=== PATIENT | female | born 1935 | race African-American/Black ===

== ENCOUNTER → 2016-11-03 | Outpatient (CLI) | payer MEDICARE, OTHER ==
[2016-11-03 13:37] LABS: Basophils # (auto) 0 uL; Basophils % (auto) 0.5 % (0.0-2.0); DEFINITIVE VIEW TRANSMISSION; Eosinophils # (auto) 0.1 uL; Eosinophils % (auto) 1.7 % (0.0-7.0); Hematocrit 44.1 % (36.0-46.0); Hemoglobin 13.8 g/dL (12.2-16.2); Lymphocytes # (auto) 1.4 uL; Lymphocytes % (auto) 23.7 % (10.0-50.0); Mean Corpuscular Hemoglobin 26.2 pg (28.0-32.0); Mean Corpuscular Hgb Conc. 31.3 g/dL (32.0-36.0); Mean Corpuscular Volume 83.7 fL (80.0-100.0); Mean Platelet Volume 9.1 fL (7.4-10.4); Monocytes # (auto) 0.3 uL; Monocytes % (auto) 4.7 % (0.0-12.0); Neutrophils % (auto) 69.4 % (37.0-80.0); Platelet Count (auto) 375 10^3/uL (140-450); Red Cell Distribution Width 15.1 % (11.6-16.0); White Blood Cell 5.8 10^3/uL (4.4-10.8)
[2016-11-03 15:53] LABS: Albumin 4.2 g/dL (3.4-5.0); Alkaline Phosphatase 122 U/L (45-117); Anion Gap 10 (5-15); Aspartate Aminotransferase 20 U/L (15-37); BUN/Creatinine Ratio 16.8; Bilirubin, Direct < 0.1 mg/dL (0-0.2); Bilirubin, Total 0.4 mg/dL (0.2-1.0); Blood Urea Nitrogen 19 mg/dL (7-18); Calcium 10.3 mg/dL (8.5-10.1); Carbon Dioxide 24 mmol/L (21-32); Chloride 103 mmol/L (98-107); Cholesterol 283 mg/dL (<200); GFR African American 59 mL/min; GFR Non-African American 49 mL/min; Glucose 176 mg/dL (74-106); HDL Cholesterol 50 mg/dL (40-59); LDL Cholesterol 199 mg/dL (<100); Potassium 3.9 mmol/L (3.5-5.1); Sodium 137 mmol/L (136-145); Total Protein 7.9 g/dL (6.4-8.2); Triglycerides 268 mg/dL (<150)
== END | disposition home or self-care (01) ==
LOC: LAB 08:54
PROVIDERS: ATTEND Internal Medicine Cardiovascular Disease
DX: E11.9 Type 2 diabetes mellitus without complications (principal); I10 Essential (primary) hypertension; E78.00 Pure hypercholesterolemia, unspecified; E55.9 Vitamin D deficiency, unspecified; K74.1 Hepatic sclerosis; E03.9 Hypothyroidism, unspecified
CPT/HCPCS: 36415; 80048; 80061; 80076; 82306; 83036; 84443; 85025

== ENCOUNTER → 2016-11-06 | Outpatient (CLI) | payer MEDICARE, OTHER | END | disposition home or self-care (01) | LOC: Rad HDHVI 11:48 | PROVIDERS: ATTEND Internal Medicine Cardiovascular Disease | DX: I51.7 Cardiomegaly (principal); J98.11 Atelectasis; I70.0 Atherosclerosis of aorta | CPT/HCPCS: 71020 ==

== ENCOUNTER 2017-02-07 19:41 | Emergency (ER) | payer OTHER ==
[~2017-02-07] VITALS: Ht 170.2 cm; Wt 81.6 kg
[2017-02-07] MEDS ORDERED: cloNIDine HCL 0.1 MG TAB PO ONE (20:15)
[2017-02-07] MEDS: ASPirin 81 mg TAB PO ONE ×2 (20:27→20:40)
[2017-02-07 20:34] LABS: Basophils # (auto) 0 uL; Basophils % (auto) 0.3 % (0.0-2.0); DEFINITIVE VIEW TRANSMISSION; Eosinophils # (auto) 0.1 uL; Hematocrit 39.7 % (36.0-46.0); Hemoglobin 13.2 g/dL (12.2-16.2); Lymphocytes # (auto) 1.4 uL; Lymphocytes % (auto) 18.7 % (10.0-50.0); Mean Corpuscular Hemoglobin 26.8 pg (28.0-32.0); Mean Corpuscular Hgb Conc. 33.1 g/dL (32.0-36.0); Mean Platelet Volume 7.6 fL (7.4-10.4); Monocytes # (auto) 0.5 uL; Monocytes % (auto) 7.5 % (0.0-12.0); Neutrophils # (auto) 5.2 uL; Neutrophils % (auto) 72.5 % (37.0-80.0); Platelet Count (auto) 377 10^3/uL (140-450); Red Cell Distribution Width 14.7 % (11.6-16.0); White Blood Cell 7.2 10^3/uL (4.4-10.8)
[2017-02-07 20:59] LABS: Albumin 3.7 g/dL (3.4-5.0); Alkaline Phosphatase 111 U/L (45-117); Anion Gap 10 (5-15); Aspartate Aminotransferase 18 U/L (15-37); BUN/Creatinine Ratio 22.8; Bilirubin, Total 0.1 mg/dL (0.2-1.0); Blood Urea Nitrogen 23 mg/dL (7-18); Calcium 10.7 mg/dL (8.5-10.1); Carbon Dioxide 23 mmol/L (21-32); Chloride 106 mmol/L (98-107); GFR African American 67 mL/min; GFR Non-African American 56 mL/min; Glucose 197 mg/dL (74-106); Magnesium 2.5 mg/dL (1.6-2.6); Potassium 3.5 mmol/L (3.5-5.1); Sodium 139 mmol/L (136-145); Total Protein 7.5 g/dL (6.4-8.2)
[2017-02-07 21:50] VITALS: BP 142/72
== END 2017-02-07 22:10 | disposition home or self-care (01) ==
LOC: ER 19:46
DX: I10 Essential (primary) hypertension (principal); M19.90 Unspecified osteoarthritis, unspecified site; I25.2 Old myocardial infarction; Z88.2 Allergy status to sulfonamides; Z88.4 Allergy status to anesthetic agent
CPT/HCPCS: 36415; 71010; 80053; 83735; 84484; 85025; 93005; 94761

== ENCOUNTER → 2017-05-28 | Outpatient (CLI) | payer OTHER ==
[~2017-05-28] VITALS: Ht 167.6 cm; Wt 84.8 kg
[2017-05-28 12:19] LABS: Basophils # (auto) 0 uL; Basophils % (auto) 0.6 % (0.0-2.0); CONDITION Y; Eosinophils # (auto) 0.1 uL; Eosinophils % (auto) 1.3 % (0.0-7.0); Hematocrit 42.4 % (36.0-46.0); Hemoglobin 13.9 g/dL (12.2-16.2); Lymphocytes # (auto) 1.3 uL; Lymphocytes % (auto) 19.7 % (10.0-50.0); Mean Corpuscular Hemoglobin 27.1 pg (28.0-32.0); Mean Corpuscular Hgb Conc. 32.7 g/dL (32.0-36.0); Mean Corpuscular Volume 82.9 fL (80.0-100.0); Monocytes # (auto) 0.4 uL; Monocytes % (auto) 5.9 % (0.0-12.0); Neutrophils # (auto) 4.9 uL; Neutrophils % (auto) 72.5 % (37.0-80.0); Platelet Count (auto) 357 10^3/uL (140-450); Red Cell Distribution Width 16.7 % (11.6-16.0); White Blood Cell 6.8 10^3/uL (4.4-10.8)
[2017-05-28 12:26] LABS: BUN/Creatinine Ratio 14.3; Bilirubin, Total 0.4 mg/dL (0.2-1.0); Calcium 10.4 mg/dL (8.5-10.1); Total Protein 7.7 g/dL (6.4-8.2)
== END | disposition home or self-care (01) ==
LOC: Rad HDHVI 08:01
PROVIDERS: ATTEND Internal Medicine Cardiovascular Disease
DX: I10 Essential (primary) hypertension (principal)
CPT/HCPCS: 36415; 78452; 80053; 82306; 85025; 93017; 96374; A9500

== ENCOUNTER → 2017-06-14 | Outpatient (CLI) | payer BC | END | disposition home or self-care (01) | LOC: Rad HDHVI 10:46 | PROVIDERS: ATTEND Internal Medicine Cardiovascular Disease | DX: R07.89 Other chest pain (principal); I10 Essential (primary) hypertension; E11.9 Type 2 diabetes mellitus without complications | CPT/HCPCS: 93306 ==

== ENCOUNTER → 2018-03-28 | Outpatient (CLI) | payer BC | END | disposition home or self-care (01) | LOC: Rad HDHVI 10:46 | PROVIDERS: ATTEND Internal Medicine | DX: I25.10 Atherosclerotic heart disease of native coronary artery without angina pectoris (principal); I51.7 Cardiomegaly; I10 Essential (primary) hypertension; E11.9 Type 2 diabetes mellitus without complications; E03.9 Hypothyroidism, unspecified; E78.00 Pure hypercholesterolemia, unspecified | CPT/HCPCS: 71046 ==

== ENCOUNTER 2018-05-18 16:31 | Inpatient (IN) | payer BC ==
[~2018-05-18] VITALS: Ht 172.7 cm; Wt 92.8 kg
[2018-05-18 18:34] LABS: Basophils # (auto) 0 uL; Basophils % (auto) 0.7 % (0.0-2.0); Eosinophils # (auto) 0.1 uL; Eosinophils % (auto) 1.3 % (0.0-7.0); Hematocrit 41.2 % (36.0-46.0); Lymphocytes # (auto) 1.7 uL; Lymphocytes % (auto) 25.4 % (10.0-50.0); Mean Corpuscular Hemoglobin 28.8 pg (28.0-32.0); Mean Corpuscular Hgb Conc. 33.9 g/dL (32.0-36.0); Monocytes # (auto) 0.4 uL; Monocytes % (auto) 6.1 % (0.0-12.0); Neutrophils # (auto) 4.6 uL; Neutrophils % (auto) 66.5 % (37.0-80.0); Nucleated Red Blood Cells % 0.1 %; Platelet Count (auto) 342 10^3/uL (140-450); Red Blood Cells 4.85 10^6/uL (4.0-5.20); Red Cell Distribution Width 14.9 % (11.8-14.3); White Blood Cell 6.9 10^3/uL (4.4-10.8)
[2018-05-18 18:47] LABS: Alanine Aminotransferase 27 U/L (13-56); Albumin 3.9 g/dL (3.4-5.0); Anion Gap 12 (5-15); Aspartate Aminotransferase 14 U/L (15-37); BUN/Creatinine Ratio 13.6; Blood Urea Nitrogen 23 mg/dL (7-18); Calcium 10.1 mg/dL (8.5-10.1); Carbon Dioxide 21 mmol/L (21-32); Chloride 98 mmol/L (98-107); GFR African American 37 mL/min; GFR Non-African American 31 mL/min; Glucose 227 mg/dL (74-106); Magnesium 2.6 mg/dL (1.6-2.6); Potassium 3.6 mmol/L (3.5-5.1); Sodium 131 mmol/L (136-145)
[2018-05-18 18:52] LABS: Alkaline Phosphatase 102 U/L (45-117); Bilirubin, Total 0.2 mg/dL (0.2-1.0); Total Protein 7.8 g/dL (6.4-8.2)
[2018-05-19] MEDS ORDERED: ONDANSETRON ODT 4 MG TAB PO ONE (01:45)
[2018-05-19] MEDS ORDERED: MORPHINE SULF INJ 2 MG/ML SYRINGE 1ML IV ONE (01:45)
[2018-05-19] MEDS ORDERED: ACETAMINOPHEN 500 MG TAB PO ONE (02:00)
[2018-05-19 02:37] LABS: Amylase 63 U/L (25-115); Lipase 333 U/L (73-393)
[2018-05-19] MEDS ORDERED: HYDROcodone-ACET 5/325MG TAB PO ONE (05:00)
[2018-05-19] MEDS ORDERED: FUROSEMIDE 20 MG/2 ML VIAL IV ONE (05:00)
[2018-05-19] MEDS ORDERED: MORPHINE SULF INJ 2 MG/ML SYRINGE 1ML IV PRN (05:15)
[2018-05-19] MEDS ORDERED: TEMAZEPAM 15 MG CAP PO PRN (05:15)
[2018-05-19] MEDS ORDERED: DEXTROSE (50%) 50ML SYRG IV PRN ×2 (05:15→12:45)
[2018-05-19] MEDS ORDERED: NITROGLYCERIN 0.4 MG SL TAB SL PRN (05:15)
[2018-05-19] MEDS ORDERED: ONDANSETRON HCL 4 MG/2 ML VIAL IV PRN (05:15)
[2018-05-19] MEDS: ACCU-CHEK COMFORT CURVE STRIP VI SCH ×4 (06:00→21:59)
[2018-05-19] MEDS: InsuLIN REG 1unit/0.01ml Soln (100units/ml) SC SCH ×4 (06:45→21:59)
[2018-05-19] MEDS: amLODIPine BESYLATE 5 MG TAB PO SCH (10:16)
[2018-05-19] MEDS: hydrALAZINE HCL 25 MG TAB PO SCH ×2 (10:16→21:59)
[2018-05-19] MEDS: FUROSEMIDE 20 MG TAB PO SCH (10:16)
[2018-05-19] MEDS: PANTOPRAZOLE 40 MG TAB PO SCH (10:17)
[2018-05-19] MEDS ORDERED: AMLO5TAB2 PO (14:20)
[2018-05-19] MEDS ORDERED: LORA-654 PO (14:20)
[2018-05-19] MEDS ORDERED: IBUP800T24 PO (14:20)
[2018-05-19] MEDS ORDERED: OME20GT PO (14:20)
[2018-05-19] MEDS ORDERED: HYDR-4296 PO (14:21)
[2018-05-19 15:05] VITALS: BP 145/75
[2018-05-19] MEDS ORDERED: BISACODYL 5 MG EC TAB PO PRN (16:15)
[2018-05-19] MEDS ORDERED: BISACODYL 5 MG EC TAB PO ONE (16:15)
[2018-05-19] MEDS: ACETAMINOPHEN 325 MG TAB PO PRN (17:03)
[2018-05-19 17:27] VITALS: BP 148/78
[2018-05-19 21:51] VITALS: BP 136/62
[2018-05-20] VITALS (7 sets, daily range): BP systolic 136–157; BP diastolic 67–87
[2018-05-20 05:30] LABS: Basophils # (auto) 0.1 uL; Basophils % (auto) 0.9 % (0.0-2.0); Eosinophils # (auto) 0.2 uL; Eosinophils % (auto) 3.3 % (0.0-7.0); Hematocrit 39.9 % (36.0-46.0); Hemoglobin 13.5 g/dL (12.2-16.2); Lymphocytes # (auto) 1.3 uL; Lymphocytes % (auto) 21.6 % (10.0-50.0); Mean Corpuscular Hemoglobin 28.4 pg (28.0-32.0); Mean Corpuscular Hgb Conc. 33.9 g/dL (32.0-36.0); Mean Corpuscular Volume 83.9 fL (80.0-100.0); Monocytes # (auto) 0.5 uL; Monocytes % (auto) 8.5 % (0.0-12.0); Neutrophils % (auto) 65.7 % (37.0-80.0); Platelet Count (auto) 307 10^3/uL (140-450); Red Blood Cells 4.75 10^6/uL (4.0-5.20); Red Cell Distribution Width 14.9 % (11.8-14.3)
[2018-05-20] MEDS: ACETAMINOPHEN 325 MG TAB PO PRN (05:53)
[2018-05-20] MEDS: InsuLIN REG 1unit/0.01ml Soln (100units/ml) SC SCH ×4 (05:53→22:11)
[2018-05-20] MEDS: ACCU-CHEK COMFORT CURVE STRIP VI SCH ×4 (05:53→22:11)
[2018-05-20 05:54] LABS: Albumin 3.5 g/dL (3.4-5.0); BUN/Creatinine Ratio 17.3; Bilirubin, Total 0.3 mg/dL (0.2-1.0); Calcium 9.6 mg/dL (8.5-10.1); Potassium 3.9 mmol/L (3.5-5.1); Total Protein 6.5 g/dL (6.4-8.2)
[2018-05-20] MEDS ORDERED: LIDOCAINE 2%HCL (LOCAL ANESTH.) INJ 10ml MDV ONE (07:31)
[2018-05-20] MEDS ORDERED: IODIXANOL 320MG/ML 100ML BTL IV ONE (07:32)
[2018-05-20] MEDS ORDERED: HEPARIN IN NS 1000Units/500mL 0 ML ONE (07:32)
[2018-05-20] MEDS: PANTOPRAZOLE 40 MG TAB PO SCH (10:18)
[2018-05-20] MEDS: amLODIPine BESYLATE 5 MG TAB PO SCH (10:19)
[2018-05-20] MEDS: FUROSEMIDE 20 MG TAB PO SCH (10:19)
[2018-05-20] MEDS: hydrALAZINE HCL 25 MG TAB PO SCH ×2 (10:19→22:10)
[2018-05-21 03:53] LABS: Basophils # (auto) 0 uL; Basophils % (auto) 0.7 % (0.0-2.0); Eosinophils # (auto) 0.2 uL; Eosinophils % (auto) 2.8 % (0.0-7.0); Hematocrit 42.7 % (36.0-46.0); Lymphocytes # (auto) 1.5 uL; Lymphocytes % (auto) 26.1 % (10.0-50.0); Mean Corpuscular Hemoglobin 28.1 pg (28.0-32.0); Mean Corpuscular Hgb Conc. 32.9 g/dL (32.0-36.0); Mean Corpuscular Volume 85.4 fL (80.0-100.0); Monocytes # (auto) 0.5 uL; Neutrophils # (auto) 3.5 uL; Neutrophils % (auto) 61.4 % (37.0-80.0); Nucleated Red Blood Cells % 0.2 %; Platelet Count (auto) 311 10^3/uL (140-450); Red Cell Distribution Width 15.2 % (11.8-14.3); White Blood Cell 5.8 10^3/uL (4.4-10.8)
[2018-05-21 04:10] LABS: BUN/Creatinine Ratio 13.2; Calcium 9.6 mg/dL (8.5-10.1); Potassium 3.6 mmol/L (3.5-5.1)
[2018-05-21] MEDS: InsuLIN REG 1unit/0.01ml Soln (100units/ml) SC SCH ×2 (06:41→12:32)
[2018-05-21] MEDS: ACCU-CHEK COMFORT CURVE STRIP VI SCH ×2 (06:41→11:30)
[2018-05-21 08:00] VITALS: BP 148/76
[2018-05-21 09:00] VITALS: BP 149/71
[2018-05-21] MEDS: FUROSEMIDE 20 MG TAB PO SCH (10:51)
[2018-05-21] MEDS: amLODIPine BESYLATE 5 MG TAB PO SCH (10:51)
[2018-05-21] MEDS: hydrALAZINE HCL 25 MG TAB PO SCH (10:52)
[2018-05-21] MEDS: PANTOPRAZOLE 40 MG TAB PO SCH (10:52)
[2018-05-21 13:00] VITALS: BP 143/81
== END 2018-05-21 14:45 | disposition home or self-care (01) | DRG 291 ==
LOC: ER 16:34 → OVERFLOW 16:35 → TELE-CENTR 05-19 12:59
PROVIDERS: ADMIT Nurse Practitioner; ATTEND Internal Medicine Cardiovascular Disease
DX: I13.0 Hypertensive heart and chronic kidney disease with heart failure and stage 1 through stage 4 chronic kidney disease, or unspecified chronic kidney disease (principal); I50.33 Acute on chronic diastolic (congestive) heart failure; N17.9 Acute kidney failure, unspecified; E87.1 Hypo-osmolality and hyponatremia; J98.11 Atelectasis; N18.3 Chronic kidney disease, stage 3 (moderate); N28.1 Cyst of kidney, acquired; D25.9 Leiomyoma of uterus, unspecified; E11.22 Type 2 diabetes mellitus with diabetic chronic kidney disease; J44.9 Chronic obstructive pulmonary disease, unspecified; E66.9 Obesity, unspecified; I70.0 Atherosclerosis of aorta; E11.51 Type 2 diabetes mellitus with diabetic peripheral angiopathy without gangrene; I25.119 Atherosclerotic heart disease of native coronary artery with unspecified angina pectoris; Z68.31 Body mass index [BMI] 31.0-31.9, adult; Z90.49 Acquired absence of other specified parts of digestive tract; Z85.9 Personal history of malignant neoplasm, unspecified; Z88.6 Allergy status to analgesic agent; Z88.8 Allergy status to other drugs, medicaments and biological substances; Z88.2 Allergy status to sulfonamides
CPT/HCPCS: 36415; 70450; 71046; 74176; 80048; 80053; 82150; 82962; 83036; 83690; 83735; 84484; 85025; 93005; 93306; 96372; 96374; A6257; J1815; J2001; Q0162; Q9967

== ENCOUNTER → 2018-06-17 | Outpatient (CLI) | payer BC ==
[~2018-06-17] MED LIST: AMLO10TA12 PO; AMLO5TAB13 PO; ASPI81TA27 PO; HYDR-4296 PO; IBUP800T24 PO; LORA-654 PO; OME20GT PO; OMEP20TA PO
[2018-06-17 09:50] VITALS: BP 154/83
[2018-06-17 10:15] VITALS: BP 158/84
[2018-06-17 12:41] LABS: Basophils # (auto) 0 uL; Eosinophils # (auto) 0.1 uL; Eosinophils % (auto) 2.2 % (0.0-7.0); Hematocrit 44.7 % (36.0-46.0); Lymphocytes # (auto) 1.1 uL; Mean Corpuscular Hemoglobin 28.6 pg (28.0-32.0); Mean Corpuscular Hgb Conc. 33.5 g/dL (32.0-36.0); Mean Corpuscular Volume 85.4 fL (80.0-100.0); Monocytes # (auto) 0.3 uL; Monocytes % (auto) 5.7 % (0.0-12.0); Neutrophils % (auto) 66.1 % (37.0-80.0); Nucleated Red Blood Cells % 0.2 %; Platelet Count (auto) 305 10^3/uL (140-450); Red Blood Cells 5.23 10^6/uL (4.0-5.20); Red Cell Distribution Width 14.4 % (11.8-14.3); White Blood Cell 4.6 10^3/uL (4.4-10.8)
[2018-06-17 13:01] LABS: INR 0.96 (0.9-1.15); Partial Thromboplastin Time 27.9 sec (23.78-33.04); Prothrombin Time 10.3 sec (9.27-12.13)
[2018-06-17 13:03] LABS: BUN/Creatinine Ratio 13.3; Calcium 10.5 mg/dL (8.5-10.1); Potassium 3.5 mmol/L (3.5-5.1)
== END | disposition home or self-care (01) ==
LOC: Rad HDHVI 09:39
PROVIDERS: ATTEND Internal Medicine Cardiovascular Disease
DX: Z01.818 Encounter for other preprocedural examination (principal); I70.0 Atherosclerosis of aorta; I10 Essential (primary) hypertension; D64.9 Anemia, unspecified; R79.1 Abnormal coagulation profile; R94.31 Abnormal electrocardiogram [ECG] [EKG]; Z88.2 Allergy status to sulfonamides; Z88.5 Allergy status to narcotic agent
CPT/HCPCS: 36415; 71046; 80048; 85025; 85610; 85730; 93005; G0463

== ENCOUNTER 2018-06-23 09:15 | Day surgery (SDC) | payer BC ==
[~2018-06-23] VITALS: Ht 172.7 cm; Wt 86.2 kg
[~2018-06-23 09:15] MED LIST changes: -AMLO5TAB13 PO; -OME20GT PO
[2018-06-23] MEDS ORDERED: LIDOCAINE 2% (LOCAL ANESTH.) PF 5ml SDV ONE (11:39)
[2018-06-23] MEDS ORDERED: IODIXANOL 320MG/ML 100ML BTL IV ONE (11:51)
[2018-06-23] MEDS ORDERED: fentaNYL CITRATE 100 MCG/2 ML VL ONE (12:14)
[2018-06-23] MEDS ORDERED: methylPREDNISolone SOD SUCC 125 MG/2 ML VL ONE (12:14)
[2018-06-23] MEDS ORDERED: diphenhdrAMINE HCL 50 MG/1 ML VL ONE (12:14)
[2018-06-23] MEDS ORDERED: MIDAZOLAM HCL 1MG/1ML-2 ML VIAL ONE ×2 (12:15→13:01)
[2018-06-23] MEDS ORDERED: NITROGLYCERIN 0.4MG/DOSE SPRAY 4.9GM ONE (12:23)
[2018-06-23] MEDS ORDERED: LIDOCAINE 2%HCL (LOCAL ANESTH.) INJ 20ML MDV ONE (13:01)
[2018-06-23] MEDS ORDERED: ANGIOMAX 250 MG VIAL IV ONE (13:02)
[2018-06-23] MEDS ORDERED: SODIUM CHL 0.9% 0 ML ONE (13:02)
== END 2018-06-23 15:40 | disposition home or self-care (01) ==
LOC: CATH 09:15
PROVIDERS: ATTEND Internal Medicine Cardiovascular Disease
DX: I25.10 Atherosclerotic heart disease of native coronary artery without angina pectoris (principal); I27.20 Pulmonary hypertension, unspecified; I11.0 Hypertensive heart disease with heart failure; E11.9 Type 2 diabetes mellitus without complications; Z79.82 Long term (current) use of aspirin; Z79.899 Other long term (current) drug therapy; Z91.041 Radiographic dye allergy status; Z88.2 Allergy status to sulfonamides; Z88.1 Allergy status to other antibiotic agents; Z88.6 Allergy status to analgesic agent; Z88.8 Allergy status to other drugs, medicaments and biological substances; Z80.0 Family history of malignant neoplasm of digestive organs; Z82.49 Family history of ischemic heart disease and other diseases of the circulatory system
CPT/HCPCS: 93460; A6257; C1751; C1760; C1894; J1200; J1644; J2001; J2250; J2930; J3010; J7030; Q9967; 99152

== ENCOUNTER → 2018-10-24 | Outpatient (CLI) | payer BC ==
[~2018-10-24] VITALS: Ht 30.5 cm; Wt 0.5 kg
[~2018-10-24] MED LIST changes: +IOHEXOL 350 MG/ML 100ML IJ ONE; +diphenhdrAMINE HCL 50 MG/1 ML VL IV ONE; +diphenhdrAMINE HCL 50 MG/1 ML VL ONE; +methylPREDNISolone SOD SUCC 125 MG/2 ML VL IV ONE; +methylPREDNISolone SOD SUCC 125 MG/2 ML VL ONE
[2018-10-24 09:45] VITALS: BP 146/80
--- NOTE | 2018-10-24 09:45 | NUR ---
[facility] PT TO [facility] FOR IV INSERT FOR CT CHEST C/O CONTINUED EPIGASTRIC PAIN.
--- NOTE | 2018-10-24 09:45 | NUR ---
[facility]F PT TO [facility] PT IV INSERT CT CHEST FOR C/O CONTINUED EPIGASTRIC PAIN EVEN AFTER ORAL TX.
--- NOTE | 2018-10-24 09:55 | NUR ---
CHF IV insertion IV access obtained, via clean sterile technique by inserting 22 gauge catheter at after attempt(s). IV secured properly. No trauma to site. Patient tolerated procedure well.EZ CHEMO 1.40,WILL RUN IV HYDRATION 250 ML BOLUS NS . Addendum: 10/24/18 at 1504 by Elly Andrew RN [place] PREMEDICATION WILL ALSO BE NEEDED PT HAS IODINE ALLERGY.
--- NOTE | 2018-10-24 10:04 | NUR ---
CHF IV insertion IV access obtained, via clean sterile technique by inserting 22 gauge catheter at after attempt(s). IV secured properly. No trauma to site. Patient tolerated procedure well.WGHT 186 LB. Addendum: 10/24/18 at [facility] by Elly Andrew RN [place] WILL PREMEDICATION WITH 125MG IV SOLUMEDEROL IVP AND THAN BENADRYL 25MG IVP,DUE TO IODINE ALLERGY.
[2018-10-24] MEDS: SODIUM CHLORIDE 0.9% 250 ML IV SCH ×2 (10:12→10:32)
--- NOTE | 2018-10-24 10:12 | NUR ---
CHF 1008 IVP SOLU MEDROL 125MG ADMINISTERED. 25MG BENADRYL IVP AT 1010 1012 NS 250ML BOLUS STARTED.
--- NOTE | 2018-10-24 10:12 | NUR ---
CHF IVP SOLU MEDROL AND BENADRYL 25MG IVP ADMINISTERED AND IV NS 250MG BOLUS STARTED IV NS BOLUS 250ML
[2018-10-24 11:25] VITALS: BP 141/78
--- NOTE | 2018-10-24 11:25 | NUR ---
CHF IV NS COMPLETE. IV removal IV DC'd with sterile technique, catheter fully intact. Pressure dressing applied to site. Patient tolerated procedure well. Discharged with aftercare instructions per . F/U WITH DR. NARAYANAN SCHEDULED. NOTE:
== END | disposition home or self-care (01) ==
LOC: Rad HDHVI 09:18
PROVIDERS: ATTEND Internal Medicine Cardiovascular Disease
DX: R07.9 Chest pain, unspecified (principal); R10.13 Epigastric pain; N28.9 Disorder of kidney and ureter, unspecified; J98.11 Atelectasis; I70.0 Atherosclerosis of aorta; I25.10 Atherosclerotic heart disease of native coronary artery without angina pectoris; I13.0 Hypertensive heart and chronic kidney disease with heart failure and stage 1 through stage 4 chronic kidney disease, or unspecified chronic kidney disease; E11.22 Type 2 diabetes mellitus with diabetic chronic kidney disease; E11.51 Type 2 diabetes mellitus with diabetic peripheral angiopathy without gangrene; N18.3 Chronic kidney disease, stage 3 (moderate); I50.32 Chronic diastolic (congestive) heart failure; J44.9 Chronic obstructive pulmonary disease, unspecified; E66.9 Obesity, unspecified; Z85.9 Personal history of malignant neoplasm, unspecified; Z90.49 Acquired absence of other specified parts of digestive tract; Z79.899 Other long term (current) drug therapy; Z79.82 Long term (current) use of aspirin
CPT/HCPCS: 71260; 82565; 96361; 96374; 96375; G0463; J1200; J2930; J7050; Q9967

== ENCOUNTER → 2019-02-22 | Outpatient (CLI) | payer BC, OTHER ==
[~2019-02-22] MED LIST changes: -IOHEXOL 350 MG/ML 100ML IJ ONE; -diphenhdrAMINE HCL 50 MG/1 ML VL IV ONE; -diphenhdrAMINE HCL 50 MG/1 ML VL ONE; -methylPREDNISolone SOD SUCC 125 MG/2 ML VL IV ONE; -methylPREDNISolone SOD SUCC 125 MG/2 ML VL ONE
== END | disposition home or self-care (01) ==
LOC: Rad HDHVI 12:26
PROVIDERS: ATTEND Internal Medicine Cardiovascular Disease
DX: K56.609 Unspecified intestinal obstruction, unspecified as to partial versus complete obstruction (principal)
CPT/HCPCS: 74018

== ENCOUNTER → 2019-05-09 | Outpatient (CLI) | payer BC ==
[~2019-05-09] MED LIST changes: -AMLO10TA12 PO; +AMLO10TA13 PO; +ASPI-404 PO; -ASPI81TA27 PO; -LORA-654 PO; +LORA0.5T12 PO
== END | disposition home or self-care (01) ==
LOC: Rad HDHVI 13:31
PROVIDERS: ATTEND Internal Medicine Cardiovascular Disease
DX: I08.1 Rheumatic disorders of both mitral and tricuspid valves (principal); I11.0 Hypertensive heart disease with heart failure; I50.9 Heart failure, unspecified; I42.9 Cardiomyopathy, unspecified
CPT/HCPCS: 93306

== ENCOUNTER → 2019-09-15 | Outpatient (CLI) | payer BC, MEDICARE ==
[2019-09-15 12:27] LABS: Basophils # (auto) 0.1 uL; Basophils % (auto) 1.2 % (0.0-2.0); Eosinophils # (auto) 0.1 uL; Eosinophils % (auto) 1.3 % (0.0-7.0); Hematocrit 42.1 % (36.0-46.0); Hemoglobin 13.9 g/dL (12.2-16.2); Lymphocytes # (auto) 1.2 uL; Lymphocytes % (auto) 22.9 % (10.0-50.0); Mean Corpuscular Hemoglobin 29.4 pg (28.0-32.0); Mean Corpuscular Volume 89.1 fL (80.0-100.0); Monocytes # (auto) 0.3 uL; Monocytes % (auto) 5.9 % (0.0-12.0); Neutrophils # (auto) 3.7 uL; Neutrophils % (auto) 68.7 % (37.0-80.0); Nucleated Red Blood Cells % 0.2 %; Platelet Count (auto) 301 10^3/uL (140-450); Red Blood Cells 4.72 10^6/uL (4.0-5.20); White Blood Cell 5.4 10^3/uL (4.4-10.8)
[2019-09-15 12:36] LABS: Albumin 3.9 g/dL (3.4-5.0); Calcium 10.7 mg/dL (8.5-10.1); Potassium 3.5 mmol/L (3.5-5.1)
[2019-09-15 12:43] LABS: BUN/Creatinine Ratio 12.7; Bilirubin, Total 0.3 mg/dL (0.2-1.0); Total Protein 7.5 g/dL (6.4-8.2)
== END | disposition home or self-care (01) ==
LOC: LAB 08:35
PROVIDERS: ATTEND Internal Medicine Cardiovascular Disease
DX: Z00.00 Encounter for general adult medical examination without abnormal findings (principal); E03.9 Hypothyroidism, unspecified; K90.9 Intestinal malabsorption, unspecified; D51.9 Vitamin B12 deficiency anemia, unspecified; Z79.899 Other long term (current) drug therapy
CPT/HCPCS: 36415; 80053; 80061; 82306; 82607; 83036; 84439; 84443; 85025

== ENCOUNTER → 2019-11-21 | Outpatient (CLI) | payer MEDICARE ==
[~2019-11-21] MED LIST changes: +READI-CAT 2 (BARIUM SULF)(VANILLA SMOOTHIE) 450ML ONE
== END | disposition home or self-care (01) ==
LOC: Rad HDHVI 09:18
PROVIDERS: ATTEND Internal Medicine Cardiovascular Disease
DX: K57.30 Diverticulosis of large intestine without perforation or abscess without bleeding (principal); C18.9 Malignant neoplasm of colon, unspecified; I10 Essential (primary) hypertension; N85.8 Other specified noninflammatory disorders of uterus; K76.0 Fatty (change of) liver, not elsewhere classified; K42.9 Umbilical hernia without obstruction or gangrene; K59.00 Constipation, unspecified
CPT/HCPCS: 74176

== ENCOUNTER → 2020-12-16 | Outpatient (CLI) | payer MEDICARE ==
[~2020-12-16] MED LIST changes: +AMLO-496 PO; -AMLO10TA13 PO; -ASPI-404 PO; +ASPI-543 PO; -IBUP800T24 PO; +IBUP800T26 PO; -LORA0.5T12 PO; +LORA0.5T20 PO; -READI-CAT 2 (BARIUM SULF)(VANILLA SMOOTHIE) 450ML ONE
[2020-12-16 12:11] LABS: Basophils # (auto) 0 10 ^3/uL (0-0.2); Basophils % (auto) 0.7 % (0.0-2.0); Eosinophils # (auto) 0.1 10 ^3/uL (0-0.8); Eosinophils % (auto) 1.4 % (0.0-7.0); Hematocrit 44.7 % (36.0-46.0); Hemoglobin 14.9 g/dL (12.2-16.2); Lymphocytes # (auto) 1.4 10 ^3/uL (0.4-5.4); Lymphocytes % (auto) 21.7 % (10.0-50.0); Mean Corpuscular Hemoglobin 29.9 pg (28.0-32.0); Mean Corpuscular Hgb Conc. 33.3 g/dL (32.0-36.0); Mean Corpuscular Volume 89.6 fL (80.0-100.0); Monocytes # (auto) 0.4 10 ^3/uL (0-1.3); Monocytes % (auto) 6.4 % (0.0-12.0); Neutrophils # (auto) 4.5 10 ^3/uL (1.6-8.6); Neutrophils % (auto) 69.8 % (37.0-80.0); Platelet Count (auto) 294 10^3/uL (140-450); Red Blood Cells 4.98 10^6/uL (4.0-5.20); Red Cell Distribution Width 14.1 % (11.8-14.3); White Blood Cell 6.5 10^3/uL (4.4-10.8)
[2020-12-16 12:16] LABS: Albumin 4.1 g/dL (3.4-5.0); BUN/Creatinine Ratio 13.5; Calcium 10.6 mg/dL (8.5-10.1); Potassium 3.7 mmol/L (3.5-5.1)
[2020-12-16 12:20] LABS: Bilirubin, Total 0.4 mg/dL (0.2-1.0); Total Protein 7.7 g/dL (6.4-8.2)
[2020-12-16 12:34] LABS: Free T4 (Free Thyroxine) 1.15 ng/dL (0.89-1.76)
== END | disposition home or self-care (01) ==
LOC: LAB 10:18
PROVIDERS: ATTEND Internal Medicine Cardiovascular Disease
DX: D51.3 Other dietary vitamin B12 deficiency anemia (principal); I10 Essential (primary) hypertension; E11.9 Type 2 diabetes mellitus without complications; E55.9 Vitamin D deficiency, unspecified; D64.9 Anemia, unspecified; R00.2 Palpitations; R53.1 Weakness; R30.0 Dysuria
CPT/HCPCS: 36415; 80053; 80061; 82306; 82607; 83036; 84439; 84443; 85025

== ENCOUNTER → 2020-12-19 | Outpatient (CLI) | payer MEDICARE | END | disposition home or self-care (01) | LOC: Rad HDHVI 09:45 | PROVIDERS: ATTEND Internal Medicine Cardiovascular Disease | DX: I08.1 Rheumatic disorders of both mitral and tricuspid valves (principal); I11.9 Hypertensive heart disease without heart failure; E78.5 Hyperlipidemia, unspecified | CPT/HCPCS: 93306 ==

== ENCOUNTER 2021-02-05 12:27 | Inpatient (IN) | payer BC, OTHER ==
[~2021-02-05] VITALS: Ht 172.7 cm; Wt 87.0 kg
[2021-02-05 13:29] LABS: Basophils # (auto) 0.1 10 ^3/uL (0-0.2); Basophils % (auto) 0.9 % (0.0-2.0); Eosinophils # (auto) 0.1 10 ^3/uL (0-0.8); Eosinophils % (auto) 1.4 % (0.0-7.0); Hemoglobin 15.1 g/dL (12.2-16.2); Lymphocytes # (auto) 1.6 10 ^3/uL (0.4-5.4); Mean Corpuscular Hemoglobin 30.2 pg (28.0-32.0); Mean Corpuscular Hgb Conc. 34.2 g/dL (32.0-36.0); Mean Corpuscular Volume 88.3 fL (80.0-100.0); Monocytes # (auto) 0.5 10 ^3/uL (0-1.3); Monocytes % (auto) 6.7 % (0.0-12.0); Neutrophils # (auto) 5.5 10 ^3/uL (1.6-8.6); Nucleated Red Blood Cells % 0.1 %; Platelet Count (auto) 297 10^3/uL (140-450); Red Blood Cells 4.98 10^6/uL (4.0-5.20); Red Cell Distribution Width 14.1 % (11.8-14.3); White Blood Cell 7.8 10^3/uL (4.4-10.8)
[2021-02-05 13:47] LABS: Chloride 106 mmol/L (98-107); Potassium 3.4 mmol/L (3.5-5.1); Sodium 139 mmol/L (136-145)
[2021-02-05 13:56] LABS: Alanine Aminotransferase 24 U/L (13-56); Albumin 3.9 g/dL (3.4-5.0); Alkaline Phosphatase 105 U/L (45-117); Anion Gap 8 (5-15); Aspartate Aminotransferase 11 U/L (15-37); BUN/Creatinine Ratio 13.9; Bilirubin, Total 0.3 mg/dL (0.2-1.0); Blood Urea Nitrogen 15 mg/dL (7-18); Carbon Dioxide 25 mmol/L (21-32); GFR African American 62 mL/min; GFR Non-African American 51 mL/min; Glucose 125 mg/dL (74-106); Lipase 182 U/L (73-393); Total Protein 7.7 g/dL (6.4-8.2)
[2021-02-05] MEDS ORDERED: cloNIDine HCL 0.1 MG TAB PO ONE (14:00)
[2021-02-05 14:37] LABS: Urine Bacteria FEW /hpf (None Seen); Urine Blood Negative /uL (Negative); Urine Specific Gravity 1.003 (1.001-1.035); Urine WBC 1 /hpf (0 - 5)
[2021-02-05] MEDS ORDERED: NITROGLYCERIN 0.4 MG SL TAB SL PRN (15:45)
[2021-02-05] MEDS ORDERED: MORPHINE SULF INJ 2 MG/ML SYRINGE 1ML IV PRN (15:45)
[2021-02-05] MEDS: SODIUM CHLORIDE 0.9% 1,000 ML IV SCH (16:34)
[2021-02-05] MEDS: PIPERACILLIN-TAZOB 3.375GM 100 ML IV SCH ×2 (17:08→22:19)
[2021-02-05 22:00] VITALS: BP 143/66
[2021-02-05] MEDS ORDERED: OMEPRAZOLE 20MG/10ML ORAL SUSP PO SCH (22:00)
[2021-02-05] MEDS ORDERED: PIPERACILLIN-TAZO 4.5GM 100 ML IV SCH (22:00)
[2021-02-05] MEDS: PANTOPRAZOLE 40 MG TAB PO SCH (22:18)
[2021-02-05] MEDS: SACUBITRIL-VALSARTAN 24mg/26mg TAB PO SCH (22:18)
[2021-02-05] MEDS: hydrALAZINE HCL 25 MG TAB PO SCH (22:18)
[2021-02-05 23:02] VITALS: BP 143/66
[2021-02-05] MEDS ORDERED: DEXL60CA4 PO (23:35)
[2021-02-05] MEDS ORDERED: IBUP600T27 PO (23:35)
[2021-02-05] MEDS ORDERED: DOCU-94 PO (23:35)
[2021-02-06] MEDS: PIPERACILLIN-TAZOB 3.375GM 100 ML IV SCH ×4 (03:39→21:47)
[2021-02-06] MEDS: guaiFENesin-DM 100/10mg/5ml SYR PO PRN ×2 (03:39→22:34)
[2021-02-06 05:00] VITALS: BP 154/73
[2021-02-06] MEDS: SODIUM CHLORIDE 0.9% 1,000 ML IV SCH ×2 (05:08→18:25)
[2021-02-06 09:00] VITALS: BP 157/74
[2021-02-06] MEDS: hydrALAZINE HCL 25 MG TAB PO SCH ×2 (09:54→21:46)
[2021-02-06] MEDS: SACUBITRIL-VALSARTAN 24mg/26mg TAB PO SCH ×2 (09:55→21:46)
[2021-02-06] MEDS: PANTOPRAZOLE 40 MG TAB PO SCH ×2 (09:55→21:47)
[2021-02-06] MEDS: amLODIPine BESYLATE 5 MG TAB PO SCH (09:55)
[2021-02-06] MEDS: ASPirin-EC 81 mg tab PO SCH (09:56)
[2021-02-06] MEDS: HYDROcodone-ACET 10/325MG TAB PO PRN (10:15)
[2021-02-06] MEDS ORDERED: LACTULOSE 20Gm/30ML SOLN PO ONE (10:45)
[2021-02-06 12:36] VITALS: BP 165/79
[2021-02-06 17:01] VITALS: BP 170/89
[2021-02-06] MEDS: PANCREATIC ENZYMES 4200 UNIT CAP PO SCH (17:17)
[2021-02-06] MEDS ORDERED: PANCREATIC ENZYMES 4200 UNIT CAP PO SCH (18:00)
[2021-02-06] MEDS: LORazepam 0.5 MG TAB PO PRN (21:47)
[2021-02-06 22:24] VITALS: BP 167/79
[2021-02-07] MEDS: PIPERACILLIN-TAZOB 3.375GM 100 ML IV SCH ×4 (04:06→23:09)
[2021-02-07 04:44] VITALS: BP 165/86
[2021-02-07] MEDS: PANCREATIC ENZYMES 4200 UNIT CAP PO SCH ×3 (06:23→17:57)
[2021-02-07] MEDS: SODIUM CHLORIDE 0.9% 1,000 ML IV SCH ×2 (07:45→23:07)
[2021-02-07 08:48] VITALS: BP 122/69
[2021-02-07] MEDS: hydrALAZINE HCL 25 MG TAB PO SCH ×2 (09:52→23:08)
[2021-02-07] MEDS: SACUBITRIL-VALSARTAN 24mg/26mg TAB PO SCH ×2 (09:52→23:08)
[2021-02-07] MEDS: PANTOPRAZOLE 40 MG TAB PO SCH ×2 (09:52→23:08)
[2021-02-07] MEDS: ASPirin-EC 81 mg tab PO SCH (09:53)
[2021-02-07] MEDS: amLODIPine BESYLATE 5 MG TAB PO SCH (09:55)
[2021-02-07 12:42] VITALS: BP 158/76
[2021-02-07] MEDS ORDERED: GASTROGRAFIN 120 ML SOL ONE (14:53)
[2021-02-07 16:30] VITALS: BP 168/95
[2021-02-07] MEDS: LACTULOSE 20Gm/30ML SOLN PO PRN (17:58)
[2021-02-07] MEDS: ACETAMINOPHEN 325 MG TAB PO PRN (17:58)
[2021-02-07] MEDS ORDERED: cloNIDine HCL 0.1 MG TAB PO PRN (18:15)
[2021-02-07 22:00] VITALS: BP 155/80
[2021-02-08 05:00] VITALS: BP 158/81
[2021-02-08] MEDS: PIPERACILLIN-TAZOB 3.375GM 100 ML IV SCH ×2 (05:41→10:17)
[2021-02-08] MEDS: PANCREATIC ENZYMES 4200 UNIT CAP PO SCH ×3 (06:10→17:00)
[2021-02-08 09:00] VITALS: BP 159/92
[2021-02-08] MEDS: amLODIPine BESYLATE 5 MG TAB PO SCH (10:00)
[2021-02-08] MEDS: ASPirin-EC 81 mg tab PO SCH (10:14)
[2021-02-08] MEDS: PANTOPRAZOLE 40 MG TAB PO SCH ×2 (10:15→21:16)
[2021-02-08] MEDS: SACUBITRIL-VALSARTAN 24mg/26mg TAB PO SCH ×2 (10:15→21:17)
[2021-02-08] MEDS: hydrALAZINE HCL 25 MG TAB PO SCH ×2 (10:16→21:18)
[2021-02-08] MEDS: SODIUM CHLORIDE 0.9% 1,000 ML IV SCH ×2 (10:25→23:45)
[2021-02-08] MEDS ORDERED: MAGNESIUM CITRATE SOLUTION 300 ML BTL PO ONE (11:00)
[2021-02-08] MEDS ORDERED: hydrALAZINE HCL 25 MG TAB PO SCH (11:15)
[2021-02-08] MEDS ORDERED: hydrALAZINE HCL 25 MG TAB PO ONE (12:00)
[2021-02-08] MEDS: POTASSIUM CHL 20MEQ/100ML 100 ML IV SCH ×2 (12:03→14:03)
[2021-02-08 12:04] LABS: Basophils # (auto) 0.1 10 ^3/uL (0-0.2); Basophils % (auto) 1.2 % (0.0-2.0); Eosinophils # (auto) 0.2 10 ^3/uL (0-0.8); Eosinophils % (auto) 3.1 % (0.0-7.0); Hematocrit 43.3 % (36.0-46.0); Hemoglobin 14.8 g/dL (12.2-16.2); Lymphocytes # (auto) 1.2 10 ^3/uL (0.4-5.4); Lymphocytes % (auto) 17.8 % (10.0-50.0); Mean Corpuscular Hemoglobin 29.6 pg (28.0-32.0); Mean Corpuscular Hgb Conc. 34.1 g/dL (32.0-36.0); Mean Corpuscular Volume 86.7 fL (80.0-100.0); Monocytes # (auto) 0.4 10 ^3/uL (0-1.3); Monocytes % (auto) 6.6 % (0.0-12.0); Neutrophils # (auto) 4.6 10 ^3/uL (1.6-8.6); Neutrophils % (auto) 71.3 % (37.0-80.0); Nucleated Red Blood Cells % 0.1 %; Platelet Count (auto) 276 10^3/uL (140-450); Red Cell Distribution Width 13.6 % (11.8-14.3); White Blood Cell 6.5 10^3/uL (4.4-10.8)
[2021-02-08 12:10] LABS: BUN/Creatinine Ratio 11.5; Calcium 10.1 mg/dL (8.5-10.1); Potassium 3.6 mmol/L (3.5-5.1)
[2021-02-08 13:00] VITALS: BP 168/83
[2021-02-08 17:00] VITALS: BP 158/85
[2021-02-08] MEDS: guaiFENesin-DM 100/10mg/5ml SYR PO PRN (21:15)
[2021-02-08 22:08] VITALS: BP 142/75
[2021-02-09 05:00] VITALS: BP 148/75
[2021-02-09] MEDS: LACTULOSE 20Gm/30ML SOLN PO PRN (06:14)
[2021-02-09] MEDS: PANCREATIC ENZYMES 4200 UNIT CAP PO SCH ×3 (06:16→17:07)
[2021-02-09] MEDS: ACETAMINOPHEN 325 MG TAB PO PRN ×2 (06:20→13:13)
[2021-02-09 08:00] VITALS: BP 167/90
[2021-02-09 09:00] VITALS: BP 167/90
[2021-02-09] MEDS: SACUBITRIL-VALSARTAN 24mg/26mg TAB PO SCH ×2 (09:23→21:16)
[2021-02-09] MEDS: PANTOPRAZOLE 40 MG TAB PO SCH ×2 (09:23→21:16)
[2021-02-09] MEDS: ASPirin-EC 81 mg tab PO SCH (09:23)
[2021-02-09] MEDS: amLODIPine BESYLATE 5 MG TAB PO SCH (09:24)
[2021-02-09] MEDS: hydrALAZINE HCL 25 MG TAB PO SCH ×2 (09:24→21:19)
[2021-02-09 13:00] VITALS: BP 158/80
[2021-02-09] MEDS: SODIUM CHLORIDE 0.9% 1,000 ML IV SCH (13:05)
[2021-02-09] MEDS: HYDROcodone-ACET 10/325MG TAB PO PRN ×2 (14:53→21:23)
[2021-02-09 16:47] VITALS: BP 141/76
[2021-02-09 21:46] VITALS: BP 153/83
[2021-02-10] VITALS (7 sets, daily range): BP systolic 138–174; BP diastolic 63–91
[2021-02-10] MEDS: PANCREATIC ENZYMES 4200 UNIT CAP PO SCH ×3 (05:23→17:16)
[2021-02-10] MEDS ORDERED: GASTROGRAFIN 120 ML SOL ONE (08:28)
[2021-02-10] MEDS: amLODIPine BESYLATE 5 MG TAB PO SCH ×2 (09:24→10:52)
[2021-02-10] MEDS: ASPirin-EC 81 mg tab PO SCH ×2 (09:25→10:52)
[2021-02-10] MEDS: hydrALAZINE HCL 25 MG TAB PO SCH ×4 (09:25→22:00)
[2021-02-10] MEDS: SACUBITRIL-VALSARTAN 24mg/26mg TAB PO SCH ×3 (09:25→22:00)
[2021-02-10] MEDS: PANTOPRAZOLE 40 MG TAB PO SCH ×3 (09:25→22:00)
[2021-02-10] MEDS: NIFEdipine ER 30 MG TAB PO SCH (22:00)
[2021-02-10] MEDS: ISOSORBIDE MONONITRATE ER 60 MG TAB PO SCH (22:00)
[2021-02-11] VITALS (7 sets, daily range): BP systolic 125–147; BP diastolic 71–94
[2021-02-11] MEDS: PIPERACILLIN-TAZO 4.5GM 100 ML IV SCH ×3 (03:00→22:00)
[2021-02-11] MEDS: hydrALAZINE HCL 25 MG TAB PO SCH ×2 (09:30→22:00)
[2021-02-11] MEDS: ASPirin-EC 81 mg tab PO SCH (09:30)
[2021-02-11] MEDS: SACUBITRIL-VALSARTAN 24mg/26mg TAB PO SCH ×2 (09:30→22:00)
[2021-02-11] MEDS: PANTOPRAZOLE 40 MG TAB PO SCH ×2 (09:31→22:00)
[2021-02-11] MEDS: ISOSORBIDE MONONITRATE ER 60 MG TAB PO SCH ×2 (09:31→22:00)
[2021-02-11] MEDS: NIFEdipine ER 30 MG TAB PO SCH ×3 (09:34→22:00)
[2021-02-11] MEDS: PANCREATIC ENZYMES 4200 UNIT CAP PO SCH ×4 (09:41→18:59)
[2021-02-11] MEDS: LACTULOSE 20Gm/30ML SOLN PO PRN (13:43)
[2021-02-11] MEDS: ACETAMINOPHEN 325 MG TAB PO PRN (23:05)
[2021-02-12] MEDS: LORazepam 0.5 MG TAB PO PRN (00:35)
[2021-02-12 05:00] VITALS: BP 113/68
[2021-02-12] MEDS: PIPERACILLIN-TAZO 4.5GM 100 ML IV SCH ×2 (06:00→13:30)
[2021-02-12] MEDS: PANCREATIC ENZYMES 4200 UNIT CAP PO SCH ×3 (07:11→17:28)
[2021-02-12 08:30] VITALS: BP 135/70
[2021-02-12] MEDS: hydrALAZINE HCL 25 MG TAB PO SCH (09:37)
[2021-02-12] MEDS: SACUBITRIL-VALSARTAN 24mg/26mg TAB PO SCH (09:38)
[2021-02-12] MEDS: ISOSORBIDE MONONITRATE ER 60 MG TAB PO SCH (09:38)
[2021-02-12] MEDS: PANTOPRAZOLE 40 MG TAB PO SCH (09:39)
[2021-02-12] MEDS: HYDROcodone-ACET 10/325MG TAB PO PRN (09:39)
[2021-02-12] MEDS: NIFEdipine ER 30 MG TAB PO SCH (09:39)
[2021-02-12] MEDS: LACTULOSE 20Gm/30ML SOLN PO PRN (09:39)
[2021-02-12 12:30] VITALS: BP 130/73
[2021-02-12 15:59] VITALS: BP 130/73
[2021-02-12 16:40] VITALS: BP 138/72
== END 2021-02-12 18:10 | disposition home or self-care (01) | DRG 392 ==
LOC: ER 12:27 → TELE 15:41 → TELE-CENTR 20:49
PROVIDERS: ADMIT Internal Medicine Cardiovascular Disease; ATTEND Internal Medicine Cardiovascular Disease
DX: K58.1 Irritable bowel syndrome with constipation (principal); K86.1 Other chronic pancreatitis; E87.6 Hypokalemia; D25.9 Leiomyoma of uterus, unspecified; D64.9 Anemia, unspecified; K42.9 Umbilical hernia without obstruction or gangrene; K57.30 Diverticulosis of large intestine without perforation or abscess without bleeding; R73.03 Prediabetes; Z20.822 Contact with and (suspected) exposure to COVID-19; I10 Essential (primary) hypertension; K21.9 Gastro-esophageal reflux disease without esophagitis; Z82.49 Family history of ischemic heart disease and other diseases of the circulatory system; Z80.0 Family history of malignant neoplasm of digestive organs; Z88.2 Allergy status to sulfonamides; Z88.8 Allergy status to other drugs, medicaments and biological substances; Z91.041 Radiographic dye allergy status; E78.5 Hyperlipidemia, unspecified; I25.2 Old myocardial infarction; Z90.49 Acquired absence of other specified parts of digestive tract
CPT/HCPCS: 36415; 74018; 74176; 74250; 80048; 80053; 81001; 83690; 84484; 85025; 87426; 93005; 96360; G0378; J2543; J3480